=== PATIENT | female | born 1995 | race Caucasian/White ===

== ENCOUNTER 2017-09-07 20:24 | Emergency (ER) | payer OTHER ==
[~2017-09-07] VITALS: Ht 154.9 cm; Wt 67.1 kg
[2017-09-07 20:54] VITALS: Ht 154.9 cm; Wt 67.1 kg
[2017-09-07 21:45] VITALS: BP 122/68
== END 2017-09-07 21:45 | disposition home or self-care (01) ==
LOC: ED 20:24
DX: H92.03 Otalgia, bilateral (principal)